=== PATIENT | female | born 1975 | race Native Hawaiian/Other Pacific Islander ===

== ENCOUNTER 2016-11-10 03:49 | Outpatient (CLI) | payer OTHER | END 2016-11-10 04:01 | disposition short-term general hospital (02) | LOC: AMB 03:49 | DX: R10.12 Left upper quadrant pain (principal); R31.9 Hematuria, unspecified; Y09 Assault by unspecified means | CPT/HCPCS: A0425; A0427 ==

== ENCOUNTER 2016-11-10 04:05 | Emergency (ER) | payer OTHER ==
[~2016-11-10] VITALS: Ht 160 cm; Wt 59.0 kg
[2016-11-10 04:02] VITALS: BP 154/106; TEMP 98.3
[2016-11-10 05:34] LABS: PLATELET COUNT 421 K/uL (152-353)
[2016-11-10 05:38] LABS: SODIUM 139 mmol/L (136-145)
== END 2016-11-10 07:30 | disposition home or self-care (01) ==
LOC: ED 04:05
PROVIDERS: Specialist
DX: S20.222A Contusion of left back wall of thorax, initial encounter (principal); S30.0XXA Contusion of lower back and pelvis, initial encounter; S80.12XA Contusion of left lower leg, initial encounter; S80.11XA Contusion of right lower leg, initial encounter; S70.12XA Contusion of left thigh, initial encounter; S40.022A Contusion of left upper arm, initial encounter; S50.11XA Contusion of right forearm, initial encounter; N39.0 Urinary tract infection, site not specified; R31.9 Hematuria, unspecified; R10.12 Left upper quadrant pain; Y09 Assault by unspecified means
CPT/HCPCS: 80053; 80307; 81000; 81025; 82150; 83690; 85027; 87088; 96374; 99284; G0479; J1885; Q9963

== ENCOUNTER 2018-03-24 17:52 | Emergency (ER) | payer OTHER ==
[~2018-03-24] VITALS: Ht 160 cm; Wt 55.8 kg
[2018-03-24 19:47] VITALS: BP 122/65; TEMP 98.1
== END 2018-03-24 19:49 | disposition home or self-care (01) ==
LOC: ED 17:52
DX: S43.491A Other sprain of right shoulder joint, initial encounter (principal); W03.XXXA Other fall on same level due to collision with another person, initial encounter; Y93.89 Activity, other specified; Y92.89 Other specified places as the place of occurrence of the external cause
CPT/HCPCS: 99282

== ENCOUNTER 2019-04-01 15:01 | Emergency (ER) | payer OTHER ==
[~2019-04-01] VITALS: Ht 160 cm; Wt 58.1 kg
[2019-04-01 15:21] VITALS: BP 131/84; TEMP 98.1
== END 2019-04-01 16:29 | disposition home or self-care (01) ==
LOC: ED 15:01
DX: S90.852A Superficial foreign body, left foot, initial encounter (principal); L08.9 Local infection of the skin and subcutaneous tissue, unspecified; W45.8XXA Other foreign body or object entering through skin, initial encounter
CPT/HCPCS: 99283

== ENCOUNTER 2019-06-15 07:50 | Emergency (ER) | payer OTHER ==
[~2019-06-15] VITALS: Ht 160 cm; Wt 58.1 kg
[2019-06-15 09:32] VITALS: BP 135/50; TEMP 97.9
== END 2019-06-15 09:33 | disposition home or self-care (01) ==
LOC: ED 07:50
DX: J40 Bronchitis, not specified as acute or chronic (principal); F17.210 Nicotine dependence, cigarettes, uncomplicated
CPT/HCPCS: 87502; 87651; 99283

== ENCOUNTER 2019-11-12 14:04 | Emergency (ER) | payer OTHER ==
[~2019-11-12] VITALS: Ht 160 cm; Wt 58.1 kg
[2019-11-12 14:12] VITALS: TEMP 98
[2019-11-12 16:00] VITALS: BP 110/68
== END 2019-11-12 16:00 | disposition home or self-care (01) ==
LOC: ED 14:04
DX: T63.391A Toxic effect of venom of other spider, accidental (unintentional), initial encounter (principal); R22.41 Localized swelling, mass and lump, right lower limb; Y92.89 Other specified places as the place of occurrence of the external cause
CPT/HCPCS: 96372; 99283; J1885

== ENCOUNTER 2020-05-23 05:16 | Emergency (ER) | payer OTHER ==
[~2020-05-23] VITALS: Ht 160 cm; Wt 58.1 kg
[2020-05-23 05:16] VITALS: TEMP 98.4
[2020-05-23 07:10] VITALS: BP 118/70
== END 2020-05-23 07:12 | disposition short-term general hospital (02) ==
LOC: ED 05:27
DX: S46.811A Strain of other muscles, fascia and tendons at shoulder and upper arm level, right arm, initial encounter (principal); S60.221A Contusion of right hand, initial encounter; T76.21XA Adult sexual abuse, suspected, initial encounter
CPT/HCPCS: 99285

== ENCOUNTER 2021-02-11 18:08 | Emergency (ER) | payer OTHER ==
[~2021-02-11] VITALS: Ht 160 cm; Wt 58.1 kg
[2021-02-11 18:08] VITALS: TEMP 99.1
[2021-02-11 18:37] LABS: PLATELET COUNT 369 K/uL (152-353)
[2021-02-11 18:44] LABS: POTASSIUM 3.6 mmol/L (3.6-5.2); SODIUM 139 mmol/L (136-145)
[2021-02-11 20:07] VITALS: BP 119/73
== END 2021-02-11 20:07 | disposition home or self-care (01) ==
LOC: ED 18:08
PROVIDERS: Emergency Medicine
DX: R55 Syncope and collapse (principal); R94.5 Abnormal results of liver function studies; F15.99 Other stimulant use, unspecified with unspecified stimulant-induced disorder
CPT/HCPCS: 51702; 80053; 80307; 80320; 81025; 84484; 85027; 93005; 99283

== ENCOUNTER 2021-08-27 02:52 | Emergency (ER) | payer OTHER ==
[~2021-08-27] VITALS: Ht 160 cm; Wt 67.1 kg
[2021-08-27] MEDS ORDERED: 904272561 PO ×2 (03:47)
[2021-08-27 03:50] VITALS: BP 135/77; TEMP 98.1
== END 2021-08-27 03:52 | disposition home or self-care (01) ==
LOC: ED 02:52
DX: S90.862A Insect bite (nonvenomous), left foot, initial encounter (principal); S90.562A Insect bite (nonvenomous), left ankle, initial encounter; T63.001A Toxic effect of unspecified snake venom, accidental (unintentional), initial encounter; F19.10 Other psychoactive substance abuse, uncomplicated; W57.XXXA Bitten or stung by nonvenomous insect and other nonvenomous arthropods, initial encounter; Y92.89 Other specified places as the place of occurrence of the external cause
CPT/HCPCS: 80307; 96372; 99283; J0696

== ENCOUNTER 2021-08-27 12:13 | Emergency (ER) | payer OTHER ==
[~2021-08-27] VITALS: Ht 160 cm; Wt 67.1 kg
[~2021-08-27 12:13] MED LIST: 904272561 PO
[2021-08-27 12:31] VITALS: BP 132/88; TEMP 98.6
[2021-08-27 13:36] LABS: PLATELET COUNT 339 K/uL (152-353)
[2021-08-27 13:41] LABS: POTASSIUM 2.8 mmol/L (3.6-5.2)
== END 2021-08-27 15:00 | disposition home or self-care (01) ==
LOC: ED 12:13
PROVIDERS: Emergency Medicine
DX: F19.10 Other psychoactive substance abuse, uncomplicated (principal)
CPT/HCPCS: 36415; 80053; 80307; 81000; 85027; 99282

== ENCOUNTER 2021-09-05 00:44 | Emergency (ER) | payer OTHER ==
[~2021-09-05] VITALS: Ht 160 cm; Wt 62.6 kg
[2021-09-05 02:11] LABS: PLATELET COUNT 361 K/uL (152-353)
[2021-09-05 02:31] LABS: POTASSIUM 3.4 mmol/L (3.6-5.2)
[2021-09-05 02:35] LABS: PARTIAL THROMBOPLASTIN TIME 25.6 SECONDS (24.5-33.6)
[2021-09-05 05:10] VITALS: BP 114/70; TEMP 98
== END 2021-09-05 05:10 | disposition home or self-care (01) ==
LOC: ED 00:44
PROVIDERS: Family Medicine
DX: T76.21XA Adult sexual abuse, suspected, initial encounter (principal); S00.83XA Contusion of other part of head, initial encounter; F10.10 Alcohol abuse, uncomplicated; Y90.2 Blood alcohol level of 40-59 mg/100 ml; F15.90 Other stimulant use, unspecified, uncomplicated; F12.90 Cannabis use, unspecified, uncomplicated; R51.9 Headache, unspecified; Y04.2XXA Assault by strike against or bumped into by another person, initial encounter; Y92.098 Other place in other non-institutional residence as the place of occurrence of the external cause
CPT/HCPCS: 36415; 80053; 80143; 80179; 80307; 80320; 81000; 81025; 82550; 84484; 85027; 85610; 85730; 93005; 99283

== ENCOUNTER 2021-10-22 09:59 | Emergency (ER) | payer OTHER ==
[~2021-10-22] VITALS: Ht 160 cm; Wt 62.6 kg
[2021-10-22 10:00] VITALS: TEMP 98.9
[2021-10-22 10:29] LABS: PLATELET COUNT 463 K/uL (152-353)
[2021-10-22 10:39] LABS: POTASSIUM 3.8 mmol/L (3.6-5.2)
[2021-10-22 14:37] VITALS: BP 110/71
== END 2021-10-22 14:37 | disposition home or self-care (01) ==
LOC: ED 09:59
PROVIDERS: Hospitalist
DX: F15.10 Other stimulant abuse, uncomplicated (principal); F10.20 Alcohol dependence, uncomplicated; Y90.0 Blood alcohol level of less than 20 mg/100 ml
CPT/HCPCS: 80053; 80143; 80179; 80307; 80320; 81002; 81015; 81025; 85027; 93005; 99285